=== PATIENT | female | born 2005 | race Two or more races ===

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

== ENCOUNTER 2023-02-12 15:38 | Emergency (ER) | payer MEDICAID ==
[~2023-02-12] VITALS: Ht 165.1 cm; Wt 119.9 kg
[2023-02-12 15:55] LABS: Basophils # (auto) 0.1 10 ^3/uL (0-0.2); Eosinophils # (auto) 0.2 10 ^3/uL (0-0.8); Hematocrit 39.2 % (36.0-46.0); Hemoglobin 13.2 g/dL (12.2-16.2); Lymphocytes # (auto) 3.2 10 ^3/uL (0.4-5.4); Lymphocytes % (auto) 33.3 % (10.0-50.0); Mean Corpuscular Hemoglobin 29.4 pg (28.0-32.0); Mean Corpuscular Hgb Conc. 33.7 g/dL (32.0-36.0); Mean Corpuscular Volume 87.1 fL (80.0-100.0); Monocytes # (auto) 0.4 10 ^3/uL (0-1.3); Monocytes % (auto) 4.1 % (0.0-12.0); Neutrophils # (auto) 5.8 10 ^3/uL (1.6-8.6); Neutrophils % (auto) 59.6 % (37.0-80.0); Red Cell Distribution Width 14.1 % (11.8-14.3); White Blood Cell 9.7 10^3/uL (4.4-10.8)
[2023-02-12 16:10] LABS: Alanine Aminotransferase 23 U/L (7-40); Albumin 4.6 g/dL (3.2-4.8); Alkaline Phosphatase 74 U/L (46-116); Anion Gap 8 (5-15); Aspartate Aminotransferase 21 U/L (13-40); BUN/Creatinine Ratio 8.4 (10.0-20.0); Blood Urea Nitrogen 7 mg/dL (9-23); Calcium 9.6 mg/dL (8.7-10.4); Carbon Dioxide 25 mmol/L (20-30); Chloride 105 mmol/L (98-107); Glucose 90 mg/dL (74-106); Potassium 4.1 mmol/L (3.5-5.1); Sodium 138 mmol/L (136-145)
[2023-02-12 16:11] LABS: Bilirubin, Total 0.7 mg/dL (0.2-1.0); Total Protein 8.4 g/dL (5.7-8.2)
[2023-02-12 16:42] LABS: Urine Bacteria NONE SEEN /hpf (None Seen); Urine Blood Negative /uL (Negative); Urine Clarity Clear (Clear); Urine Color Yellow (Yellow); Urine Mucus FEW (None Seen); Urine Protein, UAD Negative (Negative); Urine Specific Gravity 1.015 (1.001-1.035); Urine Urobilinogen Normal (Negative); Urine WBC 1 /hpf (0 - 5)
[2023-02-12 20:15] VITALS: BP 135/81; PULSE 79; RESP 18; O2SAT 100
== END 2023-02-12 20:24 | disposition home or self-care (01) ==
LOC: ER 15:38
DX: R07.89 Other chest pain (principal)
CPT/HCPCS: 36415; 71046; 80053; 81001; 81025; 83880; 84484; 85025; 85379; 93005

== ENCOUNTER 2023-10-13 17:02 | Emergency (ER) | payer MEDICAID ==
[~2023-10-13] VITALS: Ht 165.1 cm; Wt 100.0 kg
[2023-10-13 17:58] LABS: Basophils # (auto) 0.1 10 ^3/uL (0-0.2); Basophils % (auto) 0.4 % (0.0-2.0); Eosinophils # (auto) 0.2 10 ^3/uL (0-0.8); Eosinophils % (auto) 1.2 % (0.0-7.0); Hematocrit 39.1 % (36.0-46.0); Lymphocytes # (auto) 4.2 10 ^3/uL (0.4-5.4); Lymphocytes % (auto) 32.5 % (10.0-50.0); Mean Corpuscular Hemoglobin 29.6 pg (28.0-32.0); Mean Corpuscular Hgb Conc. 33.3 g/dL (32.0-36.0); Monocytes # (auto) 0.6 10 ^3/uL (0-1.3); Monocytes % (auto) 4.3 % (0.0-12.0); Neutrophils # (auto) 7.9 10 ^3/uL (1.6-8.6); Neutrophils % (auto) 61.6 % (37.0-80.0); Nucleated Red Blood Cells % 0.1 %; White Blood Cell 12.9 10^3/uL (4.4-10.8)
[2023-10-13 18:10] LABS: Chloride 107 mmol/L (98-107); Sodium 141 mmol/L (136-145)
[2023-10-13 18:11] LABS: Anion Gap 7 (5-15); Calcium 9.7 mg/dL (8.5-10.1); Carbon Dioxide 27 mmol/L (20-30)
[2023-10-13 18:16] LABS: BUN/Creatinine Ratio 12.8 (10.0-20.0); Blood Urea Nitrogen 10 mg/dL (9-23); Glucose 85 mg/dL (74-106)
[2023-10-13 20:38] VITALS: BP 136/87; PULSE 119; RESP 17; TEMP 97.9; O2SAT 98
== END 2023-10-13 20:37 | disposition home or self-care (01) ==
LOC: ER 17:02
DX: R07.89 Other chest pain (principal); R00.2 Palpitations
CPT/HCPCS: 36415; 71046; 80048; 84484; 85025; 85379; 93005

== ENCOUNTER 2025-03-04 17:24 | Emergency (ER) | payer MEDICAID ==
[~2025-03-04] VITALS: Ht 165.1 cm; Wt 128.5 kg
[2025-03-04 18:05] VITALS: BP 144/82; PULSE 120; RESP 16; TEMP 98; O2SAT 97
[2025-03-04] MEDS: IBUPROFEN 800 MG TAB PO ONE (18:16)
--- NOTE | 2025-03-04 18:24 | DVH ---
CLINICAL INDICATION: fall TECHNIQUE: 3 radiographic views of the left shoulder were obtained. Comparison: None FINDINGS/IMPRESSION: There is no evidence of acute fracture or dislocation. The visualized joint space is well maintained. The alignment is anatomical. There is no radiopaque foreign body.
--- NOTE | 2025-03-05 11:22 | ED.PDOC ---
Musculoskeletal HPI Comments A 19 YEAR OLD FEMALE PRESENTS TO THE ED WITH COMPLAINT OF LEFT SHOULDER PAIN STATUS POST FALL. PATIENT STATES SHE WAS BABY-SITTING AND WHEN SHE WAS RUNNING AFTER THE CHILD SHE ACCIDENTALLY TRIPPED AND FELL AND LANDED ON HER LEFT SHOULDER. PATIENT REPORTS HE IS NOW EXPERIENCING LEFT SHOULDER PAIN THAT IS WORSE WITH MOVEMENT. PATIENT DENIES HEAD INJURY, NECK INJURY, LOC, FEVER, CHILLS, SHORTNESS OF BREATH, CHEST PAIN, ABDOMINAL PAIN, NAUSEA, VOMITING, HEADACHE, OR OTHER COMPLAINTS. NO OTHER SYMPTOMS OR MODIFYING FACTORS AT THIS TIME. PATIENT IS ALERT, ORIENTED X 4, AND HAS STEADY GAIT. Chief Complaint: Fall Injury Time Seen by MD: 17:34 Primary Care Provider: NONE Reviewed Notes: Nurses Notes, Medications, Allergies Allergies: Coded Allergies: No Known Drug Allergy (Verified Allergy, Unknown, 10/17/20) Information Source: Patient Mode of Arrival: Ambulatory Location: Left Extremity Location: Shoulder Timing: Hours Prehospital treatment: None Severity: Moderate Able to Move Extremity: Yes Bear Weight: Fully Pain: Moderate Mechanism: Blunt Trauma Circumstances: Fall Onset of Symptoms: After Trauma Symptoms: Pain DVT Risk Factors: NONE Last Tetanus: UTD Associated signs and symptoms: Shoulder pain Past Medical History PAST MEDICAL HISTORY: Denies Surgical History: Denies all surgeries ORDER CHECKER PACKER PROCESSER History: Denies all ORDER CHECKER PACKER PROCESSER Hx Family History Family History: Family hx of DM Family History (Other): esophageal varices Social History Smoker: Non-Smoker Alcohol: Occasionally Drugs: Denies Drug Use Lives In: Home Constitutional: denies: chills, diaphoresis, fatigue, fever, malaise, sweats, weakness, others EENTM: denies: blurred vision, double vision, ear bleeding, ear discharge, ear drainage, ear pain, ear ringing, eye pain, eye redness, hearing loss, mouth pain, mouth swelling, nasal discharge, nose bleeding, nose congestion, nose pain, photophobia, tearing, throat pain, throat swelling, voice changes, others Respiratory: denies: cough, hemoptysis, orthopnea, SOB at rest, shortness of breath, SOB with excertion, stridor, wheezing, others Cardiovascular: denies: chest pain, dizzy spells, diaphoresis, Dyspnea on exertion, edema, irregular heart beat, left arm pain, lightheadedness, palpitations, PND, syncope, others Gastrointestinal: denies: abdomen distended, abdominal pain, blood streaked bowels, constipated, diarrhea, dysphagia, difficulty swallowing, hematemesis, melena, nausea, poor appetite, poor fluid intake, rectal bleeding, rectal pain, vomiting, others Genitourinary: denies: abnormal vagina bleeding, burning, dyspareunia, dysuria, flank pain, frequency, hematuria, incontinence, pain, , vagina discharge, urgency, others Neurological: denies: dizziness, fainting, headache, left sided numbness, left sided weakness, numbness, paresthesia, pre-existing deficit, right sided numbness, right sided weakness, seizure, speech problems, tingling, tremors, weakness, others Musculoskeletal: reports: joint pain, muscle pain, others (LEFT SHOULDER PAIN); denies: back pain, gout, joint swelling, muscle stiffness, neck pain Integumetry: denies: bruises, change in color, change in hair/nails, dryness, laceration, lesions, lumps, rash, wounds, others Allergic/Immunocompromised: denies: Difficulty Healing, Frequent Infections, Hives, Itching, others Hematologic/Lymphatic: denies: anemia, blood clots, easy bleeding, easy bruising, swollen glands, others Endocrine: denies: excessive hunger, excessive sweating, excessive thirst, excessive urination, flushing, intolerance to cold, intolerance to heat, unexplained weight gain, unexplained weight loss, others Psychiatric: denies: anxiety, bipolar disorder, depression, hopeless, panic disorder, schizophrenia, sleepless, suicidal, others All Other Systems: Reviewed and Negative Physical Exam General Appearance: No Apparent Distress, Obese HEENT: Normal ENT Inspection, PERRL/EOMI, Pharynx Normal, TMs Normal Neck: Full Range of Motion, Non-Tender, Normal, Normal Inspection Respiratory: Chest Non-Tender, Lungs Clear, No Accessory Muscle Use, No Respiratory Distress, Normal Breath Sounds Cardiovascular: No Edema, No JVD, No Murmur, No Gallop, Normal Peripheral Pulses, Regular Rate/Rhythm Breast Exam: Deferred Gastrointestinal: No Organomegaly, Non Tender, No Pulsatile Mass, Normal Bowel Sounds, Soft Genitalia: Deferred Pelvic: Deferred Rectal: Deferred Extremities: Decreased range of motion (SLIGHTLY), No calf tenderness, Normal capillary refill, Normal inspection, No pedal edema, Tender (ON LEFT SHOULDER, NO BONY TENDERNESS, SWELLING AND DEFORMITY. ) Musculoskeletal : Apperance: Normal Neurologic: Alert, clinical pharmacist II-XII nml as Tested, No Motor Deficits, Normal Affect, Normal Mood, No Sensory Deficits Cerebellar Function: Normal Reflexes: Normal Skin: Dry, Normal Color, Warm Peripheral Pulses: 2+ carotid (R), 2+ carotid (L), 2+ Radial (R), 2+ Radial (L) Lymphatic: No Adenopathy Was a procedure done? Was a procedure done?: No Differential Diagnosis EXT Differential Diagnosis: Fracture, Sprain, Dislocation, Contusion, Strain, Bursi tis X-Ray, Labs, Meds, VS Vital Signs Date Time Temp Pulse Resp B/P (MAP) Pulse Ox O2 Delivery O2 Flow Rate FiO2 03/04/25 18:05 120 16 97 Room Air 03/04/25 18:05 98.0 120 16 144/82 (102) 97 98.0 03/04/25 17:28 98.0 120 16 144/82 97 98.0 Current Medications Medications (Trade) Dose Ordered Sig/Phil Route Start Time Stop Time Status Last Admin Ibuprofen (Motrin Tablet) 800 mg ONCE ONCE PO 03/04/25 18:15 03/04/25 18:16 DC 03/04/25 18:16 PATIENT: ANDREA SCHRADERNACCT: [id number]: [id number] : 2005 LOC: ER ROOM / BED: / AGE / SEX: 19 / F ADM STATUS: [facility] ER SERVICE [id number] ORDERING PHYSICIAN: JAROCHO FUNG PROCEDURE(s): LSHD2 - L SHOULDER 2+ VIEW XRAY REASON: fall ORDER NUMBER(s): [id number], ACCESSION NUMBER(s): [id number] CLINICAL INDICATION: fall TECHNIQUE: 3 radiographic views of the left shoulder were obtained. Comparison: None FINDINGS/IMPRESSION: There is no evidence of acute fracture or dislocation. The visualized joint space is well maintained. The alignment is anatomical. There is no radiopaque foreign body. ATED BY: LOU HUMPHREY DO DICTATED DATE/TIME: 03/04/251821 SIGNED BY: LOU HUMPHREY DO SIGNED DATE/TIME: 03/04/251821 CC: X-Ray, Labs, Meds, VS Comment EXTERNAL MEDICAL RECORDS REVIEWED: [NONE] INDEPENDENT HISTORIANS: [NONE] SOCIAL DETERMINANTS OF HEALTH: [NONE] LABS ORDERED: NONE REVIEWED AND INTERPRETED RESULTS: NONE IMAGING ORDERED: XR SHOULDER LT: [INTERPRETED BY ME. NO ACUTE FINDINGS. NO FRACTURES OR DISLOCATION. PENDING RADIOLOGIST REPORT.] TREATMENTS ORDERED: NONE PROCEDURES PERFORMED: NONE CRITICAL CARE TIME: NONE I HAVE DISCUSSED THE PATIENT WITH THE ATTENDING PHYSICIAN DR. BAKER AND HE AGREES WITH THE PATIENT'S PLAN OF CARE AND DISPOSITION. BASED ON HISTORY OF PRESENT ILLNESS, AND PHYSICAL EXAM, PATIENT WILL BE DISCHARGED HOME. DISCUSSED PLAN FOR DISCHARGE HOME WITH RX [IBUPROFEN 800 MG]. MEDICATION WARNINGS GIVEN. SHARED DECISION MAKING: PATIENT INSTRUCTED TO FOLLOW UP WITH PRIMARY CARE PROVIDER IN 1-2 DAYS FOR RE-EVALUATION OF SYMPTOMS. PATIENT VERBALIZES UNDERSTANDING TO RETURN TO ED FOR NEW OR WORSENING SYMPTOMS OR IF FOLLOW UP WITH PCP CANNOT BE OBTAINED. PATIENT FEELS COMFORTABLE GOING HOME AT THIS TIME. ALL QUESTIONS ADDRESSED AT TIME OF DISCHARGE. Images Reviewed?: Images reviewed and evaluated by me Time of 1ST Reevaluation: 18:13 Reevaluation 1ST: Improved Patient Education/Counseling: Diagnosis, Treatment, Need For Follow Up Family Education/Counseling: Diagnosis, Treatment, No Family Present Medical Screening: No EMC Exist At This Time Departure 1 Departure Time of Disposition: 18:20 Impression: Primary Impression: Muscle strain of left shoulder Qualified Codes: S46.912A - Strain of unspecified muscle, fascia and tendon at shoulder and upper arm level, left arm, initial encounter Additional Impression: Status post fall Disposition: 01 HOME / SELF CARE / HOMELESS Condition: Stable Additional Instructions: FOLLOW-UP WITH PCP IN 1 TO 2 DAYS. TAKE MEDICATIONS PRESCRIBED. RETURN TO ED FOR ANY NEW OR WORSENING SYMPTOMS. Discharged With: Self Critical Care Note Critical Care Time?: No Stability Stability form required: No I personally scribed for JAROCHO FUNG ([email or web address]) on 03/04/25 at 18:03. Electronically submitted by Maicol Rico ([email or web address]). JAROCHO FUNG Mar 04, 2025 18:03
== END 2025-03-04 18:18 | disposition home or self-care (01) ==
LOC: ER 17:28
DX: S46.912A Strain of unspecified muscle, fascia and tendon at shoulder and upper arm level, left arm, initial encounter (principal); F10.90 Alcohol use, unspecified, uncomplicated; W01.0XXA Fall on same level from slipping, tripping and stumbling without subsequent striking against object, initial encounter; Y93.89 Activity, other specified; Y92.89 Other specified places as the place of occurrence of the external cause; Y99.8 Other external cause status
CPT/HCPCS: 73030